=== PATIENT | female | born 1990 | race Caucasian/White ===

== ENCOUNTER → 2018-11-14 14:38 | Outpatient (CLI) | payer MEDICAID, SELFPAY ==
[2017-08-25 16:06] VITALS: BMI 28.2
[2018-11-14 18:07] LABS: Chlamydia Trachomatis by PCR Negative (Negative); Neisserai gonorrhoeae by PCR Negative (Negative); Probe Check PASS; Sample Adequacy Control PASS; Specimen Processing Control PASS
--- OUTSIDE RECORDS SUMMARY | 2019-01-19 05:02 | XMS RPT_ITS ---
:1990 Author Organization OHIP Care Team Providers Name Role Phone Consuelo Jacome Attending Unavailable PROBLEMS PROBLEMS DATE TYPE CONDITION / CODE ATTENDING STATUS SOURCE 11/14/2018 Unknown Z11.3 - Encounter Pradeep Jacome for screening for [facility] infections with a Hospital predominantly Repository sexual mode of transmission / Z11.3(ICD-10) 11/14/2018 Unknown Z32.01 - Encounter Pradeep Jacome for test, [facility] result positive / Hospital Z32.01(ICD-10) Repository PROCEDURES PROCEDURES No Procedure Records FoundRESULTS RESULTS CT/NG [facility] BY PCR Collected: 11/14/2018 Status: F Source: [place]UCKEE 9:00 AM [facility] REPOSITORY TYPE CODE TESTS RESULT OUT OF RANGE REFERENCE UNITS LAB L8200.2100 Negative Normal Chlam Negative Trac PCR LAB L8200.2200 Negative Normal NG by Negative PCR Performed By: #### L8200.2000 #### Laboratory [address] [place], [address] ALLERGIES ALLERGIES DATE TYPE / CODE NAME / CODE REACTION SEVERITY SOURCE 08/25/2017 Drug No Known Unknown [facility] Allergy/4160 Allergies/F00 Hospital 37767(SNOMED [id number](RXNOR Repository CT) M) ENCOUNTERS ENCOUNTERS ADMIT/DISCHARGE ACCOUNT ADMITTING ENCOUNTER LOCATION SOURCE NUMBER CLASS 11/14/2018 [id number] Ambulatory [address] ing:LABSPEC Repository PAYERS PAYERS ENCOUNTER GUARANTOR PAYER SUBSCRIBER SOURCE 11/14/2018 SANJAY Griffith Primary Insurance:[facility] SANJAY FLORESMAN10439 [facility] SANDRAMANDOB: [facility] [address] Number: [id number], [place] [id number] Repository [address]Hrc: (330) Date:[id number] [phone] () [address] [place] [address] [id number]: 11/14/2018 Secondary NOT GIVENUNK Bobby Insurance:[facility]LF [facility]: Effective Repository Date:2018-11-14
== END ==
PROVIDERS: Visit Provider Obstetrics & Gynecology
DX: Z11.3 Encounter for screening for infections with a predominantly sexual mode of transmission (principal); Z32.01 Encounter for pregnancy test, result positive
CPT/HCPCS: 87491; 87591

== ENCOUNTER → 2018-12-02 15:30 | Outpatient (CLI) | payer MEDICAID, SELFPAY ==
[2017-08-25 16:06] VITALS: BMI 28.2
[2018-12-02 16:08] LABS: Color, Urine Yellow (Yellow); Glucose, Dipstick Normal (Normal); Ketone-Dipstick Negative (Negative); Leukocyte Esterase-Dipstick Negative /ul (Negative); Nitrite-Dipstick Negative (Negative); Occult Blood-Urine Negative /ul (Negative); Protein-Dipstick Negative (Negative); Specific Gravity, Urine 1.005 (1.002-1.030); Urine Bilirubin Dipstick Negative (Negative); Urine Clarity Clear (Clear); Urine Urobilinogen Normal (Normal)
[2018-12-02 16:15] LABS: COTININE Drug Screen Positive (<200 ng/mL)
[2018-12-02 16:28] LABS: Amphetamine Urine VISTA NEGATIVE (<1000 ng/mL); Barbiturate Urine VISTA NEGATIVE (< 200 ng/mL); Benzodiazepine Urine VISTA NEGATIVE (< 200 ng/mL); Cocaine Urine VISTA NEGATIVE (< 300 ng/mL); Ecstacy Urine VISTA NEGATIVE (< 500 ng/mL); Methadone Urine VISTA NEGATIVE (< 300 ng/mL); PCP Urine VISTA NEGATIVE (< 25 ng/mL); THC Urine VISTA NEGATIVE (< 50 ng/mL); Vista UDS pH Range 6
[2018-12-02 17:34] LABS: Absolute Lymphocyte Count 2.16 X10^3/ul (0.83-4.51); Absolute Neutrophil Count 3.5 X10^3/uL (2.0-7.7); Basophil# 0.02 X10^3/uL; Basophil% 0.3 % (0-1); Eosinophil# 0.13 X10^3/uL; Hematocrit 40.5 % (37-47); Hemoglobin 13.5 g/dl (12.0-15.0); Lymphocyte # 2.16 X10^3/ul (4.0); Lymphocyte % 33.9 % (19-41); Mean Corp Hgb Conc 33.3 g/gl (32-36); Mean Corpuscular Hgb 30.3 pg (27.0-32.0); Mean Platelet Vol. 10.1 fl (6.2-12.0); Monocyte# 0.52 X10^3/uL; Monocyte% 8.2 % (0-10); Neutrophil # 3.53 X10^3/uL (2.7-7.7); Neutrophil % 55.4 % (47-70); Platelet Count 268 K/mm3 (150-450); RBC Distribution Width CV 11.9 % (11.6-14.6); RBC Distribution Width SD 39.1 fl (35.1-43.9); Red Blood Count 4.45 M/mm3 (4.2-5.4); White Blood Count 6.4 K/mm3 (4.4-11.0)
[2018-12-02 17:36] LABS: POSITIVE COUNT NO; POSITIVE DIFFERENTIAL NO; POSITIVE MORPHOLOGY NO
[2018-12-02 17:44] LABS: Thyroid Stim Hormone (TSH) 0.53 uIU/mL (0.358-3.74)
[2018-12-02 18:29] LABS: HIV - WCH Non-Reactive (Nonreactive); Rubella IgG 26.8 IU/mL; Vitamin D,25 Hydroxy 19.9 ng/mL (29.95-100.01)
[2018-12-04 07:53] LABS: HEPATITIS B SURFACE AG Negative (Negative); Hep C Antibodies 0.2 s/co ratio (0.0-0.9)
[2018-12-04 23:34] LABS: Prenatal RPR NONREACTIVE (NONREACTIVE)
== END ==
PROVIDERS: Visit Provider Obstetrics & Gynecology
DX: Z34.81 Encounter for supervision of other normal pregnancy, first trimester (principal)
CPT/HCPCS: 36415; 80307; 81002; 82306; 84443; 85025; 86703; 86762; 86803; 87340

== ENCOUNTER → 2018-12-12 10:28 | Outpatient (CLI) | payer MEDICAID, SELFPAY | LOC: WOBLAB 10:28 → LABSPEC 10:31 | PROVIDERS: Visit Provider Obstetrics & Gynecology | DX: O23.41 Unspecified infection of urinary tract in pregnancy, first trimester (principal); Z3A.00 Weeks of gestation of pregnancy not specified | CPT/HCPCS: 87086 ==

== ENCOUNTER → 2019-04-15 | Outpatient (CLI) | payer MEDICAID, SELFPAY ==
[2017-08-25 16:06] VITALS: BMI 28.2
[2019-04-15 17:41] LABS: Glucose Challenge Gest 1H 50g 109 mg/dL (70-140); Hematocrit 37.2 % (37-47); Hemoglobin 12.7 g/dl (12.0-15.0); Mean Corp Hgb Conc 34.1 g/gl (32-36); Mean Corpuscular Hgb 30.1 pg (27.0-32.0); Mean Corpuscular Volume 88.2 fL (81-99); Mean Platelet Vol. 9.6 fl (6.2-12.0); Platelet Count 249 K/mm3 (150-450); RBC Distribution Width CV 13.1 % (11.6-14.6); RBC Distribution Width SD 40.9 fl (35.1-43.9); Red Blood Count 4.22 M/mm3 (4.2-5.4); White Blood Count 7.6 K/mm3 (4.4-11.0)
[2019-04-15 17:50] LABS: Scan Indicated on CBC? Y/N NO
== END | disposition home or self-care (01) ==
LOC: WOBLAB 15:55
PROVIDERS: Visit Provider Obstetrics & Gynecology
DX: Z34.83 Encounter for supervision of other normal pregnancy, third trimester (principal)
CPT/HCPCS: 36415; 82950; 85027

== ENCOUNTER → 2019-06-11 16:24 | Outpatient (CLI) | payer MEDICAID, SELFPAY ==
[2017-08-25 16:06] VITALS: BMI 28.2
[2019-06-11 17:45] LABS: AST(SGOT) 18 U/L (15-37); Alanine Aminotransfer ALT/SGPT 22 U/L (13-56); Albumin, Serum 2.8 g/dL (3.2-5.0); Alkaline Phosphatase 153 U/L (45-117); Bilirubin, Direct 0.06 mg/dL (0.00-0.30); Globulin 4.6 g/dL (2.2-4.2); Protein, Total 7.4 g/dL (6.4-8.2)
== END ==
PROVIDERS: Visit Provider Obstetrics & Gynecology
DX: Z36.85 Encounter for antenatal screening for Streptococcus B (principal)
CPT/HCPCS: 36415; 80076; 87081

== ENCOUNTER 2019-06-18 16:07 | Outpatient (CLI) | payer MEDICAID, SELFPAY ==
[2017-08-25 16:06] VITALS: BMI 28.2
[2019-06-18 16:25] VITALS: BMI 33.3
--- NOTE | 2019-06-20 11:35 | OB.TRI.NOTE ---
History of Present Illness Date of Service: 06/18/19 Was patient seen by the physician?: No Reason For Visit: NST Date of Service: 06/18/19 Final ALEXANDR: 07/04/19 Gestational age: 37 Weeks and 5 Days History of Present Illness: 37+ week intrauterine presents for scheduled nonstress test for pruritus. care otherwise uneventful Allergies No Known Allergies Allergy (Verified 06/18/19 16:27) NST - FHR Rate Baby A NST Reactive:: Yes FHR Category:: Category I Impression/Plan 37+ week intrauterine with pruritus. Reactive nonstress test. Continued weekly nonstress tests are planned per Dr. Johnathan Buckner. Continue routine office follow-up.
== END 2019-06-18 16:40 | disposition home or self-care (01) ==
LOC: WPOUT 16:07 → WP 16:08
PROVIDERS: Referring Provider Obstetrics & Gynecology; Visit Provider Obstetrics & Gynecology
DX: O99.713 Diseases of the skin and subcutaneous tissue complicating pregnancy, third trimester (principal); L29.9 Pruritus, unspecified; Z3A.37 37 weeks gestation of pregnancy
CPT/HCPCS: 59025

== ENCOUNTER → 2019-06-24 17:00 | Outpatient (CLI) | payer MEDICAID, SELFPAY ==
[2019-06-18 16:25] VITALS: BMI 33.3
[2019-06-24 17:41] LABS: Hematocrit 37.8 % (37-47); Hemoglobin 12.6 g/dL (12.0-15.0); Mean Corp Hgb Conc 33.3 g/dL (32-36); Mean Platelet Vol. 9.9 fl (6.2-12.0); Platelet Count 211 K/mm3 (150-450); RBC Distribution Width SD 42.6 fl (35.1-43.9); White Blood Count 7.8 K/mm3 (4.4-11.0)
[2019-06-24 18:04] LABS: ALB/GLOB Ratio 0.6 RATIO (0.9-2.4); AST(SGOT) 18 U/L (15-37); Alanine Aminotransfer ALT/SGPT 23 U/L (13-56); Albumin, Serum 2.5 g/dL (3.2-5.0); Alkaline Phosphatase 159 U/L (45-117); Anion Gap 11 (5-15); BUN 11 mg/dL (7-18); BUN/Creat Ratio 20.8 RATIO (10-20); Calcium,Total 8.5 mg/dL (8.5-10.1); Chloride 110 mmol/L (98-107); Creatinine, Serum 0.53 mg/dL (0.55-1.02); EST Glomerular Filtration Rate 146 mL/min (>60); Est Glom Filt Rate - Afr Amer 177 mL/min (>60); Globulin 4.4 g/dL (2.2-4.2); Glucose 84 mg/dL (74-106); Potassium 3.8 mmol/L (3.5-5.1); Protein, Total 6.9 g/dL (6.4-8.2); Sodium Level 142 mmol/L (136-145); Uric Acid 3.9 mg/dL (2.6-6.0)
[2019-06-24 19:30] LABS: Protein, Urine (Random) 13.9 mg/dL (<11.9)
== END ==
PROVIDERS: Visit Provider Obstetrics & Gynecology
DX: O13.3 Gestational [pregnancy-induced] hypertension without significant proteinuria, third trimester (principal)
CPT/HCPCS: 36415; 80053; 82570; 84156; 84550; 85027

== ENCOUNTER 2019-07-06 09:30 | Inpatient (IN) | payer MEDICAID, SELFPAY ==
[2019-07-06] VITALS (17 sets, daily range): BP systolic 110–134; BP diastolic 47–90; PULSE 70–98; RESP 12–18; TEMP 35.7–36.6; O2SAT 94–100; BMI 33.8
[2019-07-06 10:08] LABS: Absolute Lymphocyte Count 1.84 X10^3/uL (0.83-4.51); Absolute Neutrophil Count 5.3 X10^3/uL (2.0-7.7); Basophil# 0.01 X10^3/uL; Basophil% 0.1 % (0-1); Eosinophil# 0.07 X10^3/uL; Eosinophils% 0.9 % (0-5); Hematocrit 40.2 % (37-47); Hemoglobin 13.6 g/dL (12.0-15.0); Lymphocyte # 1.84 X10^3/ul (4.0); Lymphocyte % 23.3 % (19-41); Mean Corp Hgb Conc 33.8 g/dL (32-36); Mean Corpuscular Hgb 30.2 pg (27.0-32.0); Mean Corpuscular Volume 89.1 fL (81-99); Mean Platelet Vol. 9.7 fl (6.2-12.0); Monocyte# 0.62 X10^3/uL; Monocyte% 7.8 % (0-10); NRBC Flagged by Analyzer 0 % (0-5); Neutrophil # 5.32 X10^3/uL (2.7-7.7); Neutrophil % 67.4 % (47-70); Platelet Count 197 K/mm3 (150-450); RBC Distribution Width CV 12.7 % (11.6-14.6); RBC Distribution Width SD 41.4 fl (35.1-43.9); Red Blood Count 4.51 M/mm3 (4.2-5.4); White Blood Count 7.9 K/mm3 (4.4-11.0)
[2019-07-06] MEDS: Lactated Ringers 1,000 ML 999 ML IV (10:22)
[2019-07-06] MEDS: Lactated Ringers 1,000 ML 150 ML IV (10:57)
[2019-07-06] MEDS: Sodium Citrate/Citric Acid 30 ML UDC PO (11:48)
[2019-07-06] MEDS: Cefazolin 2 GM in 0.9% Normal Saline 100 ML IV (11:58)
--- NOTE | 2019-07-06 12:30 | PCM.HP.OB ---
- Problem List (1) 40 weeks gestation of Status: Acute History Date of Admission: 01/24/15 Final ALEXANDR: 07/04/19 Gestational age: 40 Weeks and 2 Days History of this : This is a 28 year-old, G [2], P [1002], at 40 2/7 weeks gestational age presenting for scheduled repeat section. Surgical History: Surgical History (Last Updated 07/06/19 @ 12:31 by Consuelo Jacome MD) Previous section Z98.891 2014 Allergies No Known Allergies Allergy (Verified 06/18/19 16:27) Home Medications: Home Medications Vits [Prenatabs FA ] 1 tab PO DAILY 06/18/19 Smoking Status: Light Smoker (<10/day) Alcohol: None Substance Use Type: Alcohol Number of Fetus(es): 1 History Past Pregnancies: Past Pregnancies Delivery Date Name GA/Weeks Outcome Route Weight Gender Labor Length Anesthesia Delivery Location Provider FOB 12/2014 Lev Victoria 37 Living C/S 4lb8oz, 4lb 5oz M/M Epidural [facility] Labs: Mom's Problem List Problem Status Onset Code 40 weeks gestation of Acute Z3A.40 Mom's Labs & Results 07/06/19 07/06/19 09:55 09:55 WBC 7.9 RBC 4.51 Hgb 13.6 Hct 40.2 MCV 89.1 MCH 30.2 MCHC 33.8 RDW Std Deviation 41.4 RDW Coeff of Mario Alberto 12.7 Plt Count 197 MPV 9.7 Immature Gran % (Auto) 0.500 Neut % (Auto) 67.4 Lymph % (Auto) 23.3 [place] % (Auto) 7.8 Eos % (Auto) 0.9 Baso % (Auto) 0.1 Absolute Neuts (auto) 5.3 Absolute Lymphs (auto) 1.84 Nucleated RBC % 0 Blood Type O POSITIVE Antibody Screen NEGATIVE Course Did the patient receive Yes care? Labs Blood Type: O RH: POSITIVE RPR/VDRL/Syphilis Nonreactive Rubella status Immune HbSAg Negative Date Done: 12/02/18 Chlamydia Negative Gonorrhea Negative HIV/AIDS Non-Reactive Group B Strep: Negative Current Obstetrical History Gestational Diabetes No Incompetent Cervix No Infertility No IUGR No Macrosomia No Hypertension/Pre-eclampsia No Placenta Previa/Abruption No PTL/PROM No Uterine anomaly No Oligohydramnios No Polyhydramnios No Multiple gestation No Past Medical History Asthma No Diabetes No Hypertension No Heart disease No Mitral valve prolapse No Neurologic/Seizure disorder/ No Migraines Kidney disease No Liver disease No Varicosities No Clotting disorders/Hx of DVT No Thyroid Dysfunction No Other medical diseases No Psychiatric disorders No Major trauma No Abnormal PAP smear No Sleep apnea No Mammogram in the last 2 years No Social History Marital Status: SINGLE Alleged father karthik Hx Smoking Yes Smoking Status Light Smoker (<10/day) How long have you used na substances (years)? Expected Infant Delivery Method: Scheduled Section Number of Visits: 13 Review of Systems Constitutional: Denies: Anorexia HEENT: Denies: Visual Changes Cardiovascular: Denies: Chest Pain Respiratory: Denies: Shortness of Breath Gastrointestinal: Denies: Abdominal Pain, Nausea, Vomiting Neurological: Denies: Headaches Physical Exam Vitals: avss General: Alert, Oriented x3, Cooperative Cardiovascular: Regular Rhythm, Normal S1, Normal S2 Lungs: Clear to auscultation, Normal air movement Abdomen: Soft, Non Tender, Non-Distended, Gravid Neurological: Neuro grossly intact TEMPERATURE REGULATOR: Normal external genitalia Estimated gestational size: Appropriate for gestational size Presentation: Cephalic Cervix Dilation (cm): 0 Assessment/Plan All Active Problems 40 weeks gestation of (Acute) This is a 28 year-old, G [2], P [2], at 40 2/7 weeks gestational age. Proceed as planned with repeat section. Consents signed.
--- NOTE | 2019-07-06 13:41 | PCM.OPRPT ---
Problem List (1) 40 weeks gestation of Status: Acute Report of Operation Surgery/Procedure Performed:: 1. Repeat low transverse section. 2. Lysis of adhesions. 3. Nuknit placement Delivery Classification: Scheduled Final ALEXANDR: 07/04/19 Final ALEXANDR Source: US <20 weeks Gestational age: 40 Weeks and 4 Days insurance claims specialist: Sonja Menezes Type of Anesthesia:: Spinal Date of Procedure: 07/06/19 Pre-Operative Diagnosis: 40 2/7wga, prior section Post-Operative Diagnosis: 40 2/7wga, Prior section Indications: 28yo at 40 2/7wga with hx prior section. Expectant management was planned for TOLAC however no spontaneous labor had ensued and patient declined further expectant management. Procedural r/b/i/a reviewed. Indications for : Repeat Elective Description of Procedure: The patient was taken to the operating room and spinal analgesia was administered. She is placed in a dorsal supine position with left lateral tilt. The perineum and abdomen were prepped and draped in sterile fashion. the spinal was found to be adequate. A Pfannenstiel incision was made using a scalpel and brought down to incise the subcutaneous tissue and rectus fascia at the midline. Subcutaneous tissue was bluntly dissected off the fascia laterally. The fascial incision was dissected laterally and cephalad using curved Richardson scissors. The superior leaflet of the rectus fascia was grasped using Lynn clamps and bluntly dissected and sharply dissected from the underlying rectus muscle. In a similar fashion the inferior rectus fascia was dissected from the underlying muscle. The rectus muscles were bluntly at the midline with spontaneous entry into the peritoneal cavity. There appeared to have been a dense adhesion of the anterior uterus at the midline to the rectus abdominis muscle as there was longitudinal denudement of uterine serosa and the initial layer of the myometrium at the midline - exposing the transverse uterine muscle. The peritoneal incision was thus extended inferior to this area allowing access to the lower uterine segment. The vesicouterine peritoneal fold identified. The fold was incised and a bladder flap created. Bladder blade was then repositioned to the abdomen. A low transverse hysterotomy was made using the [Metzenbaum scissors] to level of the membranes. The hysterotomy was extended bluntly cephalad and caudad. The membranes were then ruptured revealing clear fluid. The head was elevated and brought to the level of the hysterotomy and the delivered using the Kiwi with suction applied to 500mmHg to the flexion point due to initial difficulty. A female was revealed. The cord was doubly clamped and cut after 30 seconds. The was passed to awaiting [nursery personnel]. The placenta was [expressed] from the uterus and appeared intact on inspection. The uterus was cleared of debris. The hysterotomy was then repaired using 0 Vicryl running lock suture. A second imbricating layer was also placed for additional hemostasis. The abdominal wall adhesion was further inspected and it appeared that the right rectus muscle- anterior uterine adhesion created a thick wall with no significant access to the right adnexa. Sharp dissection of the adhesion was performed to mobilize sufficient myometrium for reapproximation of the midline uterine defect; however, due to the density of the defect bleeding was encountered which improved with compression and reapproximation of the anterior uterine wall. The midline uterine defect was reapproximated using 2-0 Vicryl at the myometrium and again at the serosa. Hemostasis attained. Nuknit was placed to prevent worsening adhesion. The bladder blade was removed. The anterior cul-de-sac was cleared of debris. The peritoneum and rectus muscles were reapproximated using 2-0 Vicryl running suture. The rectus fascia was closed using 0 STratafix running suture. The subcutaneous tissue small capillary bleeding controlled using the Bovie device. The subcutaneous tissue was reapproximated using 2-0 Vicryl. The skin was closed using 4-0 Monocryl subcuticularly by the OIL FIELD TECHNICIAN under my supervision. A Mepilex occlusive dressing was placed over the incision. The fundus was firm. The patient was then transferred to the recovery room without complication. Sponge, instrument, and needle counts were correct ?2. Consider future delivery at 37-38 weeks gestation gestation given the midline myometrial defect in classical distribution. Amniotic Membrane Rupture Type: Artificial Amniotic Fluid Description: Clear Placenta Disposition: [facility] Drain: Pimentel to straight drain Fluids Replaced: 1500 ml Cord Entanglement: None Nuchal Cord Compression: Without compression Cord Vessel Description: 3 Vessels Esitmated Blood Loss (ml): 900 Infant Gender: Female (1 minute): 9 (5 minute): 9 Delayed cord clamping: Yes Antibiotic Given: Ancef 2 grams IV x1 Pt instructed on risks of surgery: Bleeding, Anesthesia Risks, Infection, Failure Rate of 1 to 2%, Injury to surrounding structure(s) including bowel and bladder Complications: None - Admit VTE Documentation VTE Present on Admission: No VTE Mechan Device Prophylaxis: SCD's VTE Pharm Prophylaxis ordered?: No
[2019-07-06] MEDS: Oxytocin 30 units/NS 500 ml 30 UNITS/500 ML IV.SOLN 167 UNITS IV (14:15)
[2019-07-06] MEDS: Lactated Ringers 1,000 ML 100 ML IV (17:44)
[2019-07-06] MEDS: Ondansetron 4 MG/2 ML Vial IV (19:00)
[2019-07-06] MEDS: 0.9% Saline Lock 10 ML Syringe IV (20:01)
[2019-07-06] MEDS: Ketorolac 30 MG/ML Syringe IV (20:01)
[2019-07-06] MEDS: Cefazolin 1 GM/50 ML BAG IV (20:02)
[2019-07-07] VITALS (9 sets, daily range): BP systolic 103–132; BP diastolic 55–83; PULSE 65–92; RESP 16–20; TEMP 36.4–37.1; O2SAT 96–100
[2019-07-07] MEDS: Ketorolac 30 MG/ML Syringe IV ×4 (02:00→19:44)
[2019-07-07] MEDS: 0.9% Saline Lock 10 ML Syringe IV ×4 (02:01→19:45)
[2019-07-07] MEDS: Lactated Ringers 1,000 ML 100 ML IV (03:44)
[2019-07-07] MEDS: Cefazolin 1 GM/50 ML BAG IV (03:44)
[2019-07-07 06:33] LABS: Hematocrit 32.8 % (37-47); Hemoglobin 11.1 g/dL (12.0-15.0); Mean Corp Hgb Conc 33.8 g/dL (32-36); Mean Corpuscular Hgb 30.7 pg (27.0-32.0); Mean Corpuscular Volume 90.6 fL (81-99); Mean Platelet Vol. 9.6 fl (6.2-12.0); Platelet Count 166 K/mm3 (150-450); RBC Distribution Width CV 12.7 % (11.6-14.6); RBC Distribution Width SD 41.9 fl (35.1-43.9); Red Blood Count 3.62 M/mm3 (4.2-5.4)
--- NOTE | 2019-07-07 09:05 | PN.OBGYN_ITS ---
Patient Problems: Active and Suspected Problems 40 weeks gestation of (Acute) Subjective: No issues overnight. No flatus yet. Emesis yesterday, but tolerates PO yet. OOB without difficulty. Infant nursing well. Objective: AVSS - Physical Exam General: Alert, Oriented x3, Cooperative HEENT: Atraumatic, PERRLA, EOMI, Normocephalic Lungs: Clear to auscultation, Normal air movement Cardiovascular: Regular rate, Regular Rhythm, Normal S1, Normal S2, No murmurs Abdomen: Bowel Sounds Present, Soft, Non Tender, - - Fundus firm and nontender, lochia scant Extremities: - - trace LE edema Skin: No rashes Neurological: Neuro grossly intact Psych/Mental Status: Normal Affect, Appropriate, Alert and oriented to time, place, person, mood and affect Vital Signs Temp Pulse Resp BP Pulse Ox 97.2 F L 68 18 103/63 99 07/06/19 23:00 07/07/19 06:00 07/07/19 06:00 07/07/19 03:50 07/07/19 06:00 Oxygen Delivery Method Room Air Weight: 92.3 kg Body Mass Index (BMI) 33.8 Intake and Output for Last 24 Hours 07/05/19 07/06/19 07/07/19 23:59 23:59 23:59 Intake Total 3887.5 / 3887.5 1650 / 1650 Output Total 710 / 710 925 / 925 Balance 3177.5 / 3177.5 725 / 725 Laboratory Tests Past 24 Hrs 07/06/19 07/06/19 07/07/19 09:55 09:55 06:12 WBC 7.9 8.0 RBC 4.51 3.62 L Hgb 13.6 11.1 L Hct 40.2 32.8 L MCV 89.1 90.6 MCH 30.2 30.7 MCHC 33.8 33.8 RDW Std Deviation 41.4 41.9 RDW Coeff of Mario Alberto 12.7 12.7 Plt Count 197 166 MPV 9.7 9.6 Immature Gran % (Auto) 0.500 Neut % (Auto) 67.4 Lymph % (Auto) 23.3 [place] % (Auto) 7.8 Eos % (Auto) 0.9 Baso % (Auto) 0.1 Absolute Neuts (auto) 5.3 Absolute Lymphs (auto) 1.84 Nucleated RBC % 0 Blood Type O POSITIVE Antibody Screen NEGATIVE Medical Necessity - Tobacco Use Smoking Status: Light Smoker (<10/day) Assessment/Plan All Active Problems 40 weeks gestation of (Acute) This is a 28 year-old, G [2], P [2003] s/p RLTCS doing well. - -Rh positive -Routine postop care
[2019-07-07] MEDS: Prenatal Vits Tablet 1 TABLET PO (12:33)
[2019-07-07] MEDS: oxyCODONE 5 MG Tablet PO ×2 (12:33→20:19)
[2019-07-08] MEDS: oxyCODONE 5 MG Tablet PO ×2 (00:21→10:23)
[2019-07-08 01:55] VITALS: BP 136/71; PULSE 79; RESP 16; TEMP 36.7; O2SAT 98
[2019-07-08] MEDS: 0.9% Saline Lock 10 ML Syringe IV ×2 (01:57→07:44)
[2019-07-08] MEDS: Ketorolac 30 MG/ML Syringe IV ×2 (01:57→07:44)
--- NOTE | 2019-07-08 06:37 | PCM.PN.OB ---
Patient Problems: Active and Suspected Problems 40 weeks gestation of (Acute) Subjective: No complaints. Pain controlled, passing flatus. Tolerates PO and voids without difficulty. Objective: AVSS - Physical Exam General: Alert, Oriented x3, Cooperative, No apparent distress HEENT: Atraumatic, Normocephalic Lungs: Clear to auscultation, Normal air movement Cardiovascular: Regular rate, Regular Rhythm, Normal S1, Normal S2 Abdomen: Bowel Sounds Present, Soft, Non Tender, Non-Distended, - - fundus firm and nontender, incisional dressing c/d/i Extremities: No edema, No Calf Tenderness Neurological: Neuro grossly intact Psych/Mental Status: Normal Affect, Appropriate, Alert and oriented to time, place, person, mood and affect Vital Signs Temp Pulse Resp BP Pulse Ox 98.0 F 79 16 136/71 H 98 07/08/19 01:55 07/08/19 01:55 07/08/19 01:55 07/08/19 01:55 07/08/19 01:55 Oxygen Delivery Method Room Air Weight: 92.3 kg Body Mass Index (BMI) 33.8 Intake and Output for Last 24 Hours 07/06/19 07/07/19 07/08/19 23:59 23:59 23:59 Intake Total 3887.5 / 3887.5 3643.33 / 3643.33 Output Total 710 / 710 4225 / 4225 Balance 3177.5 / 3177.5 -581.67 / -581.67 Medical Necessity - Tobacco Use Smoking Status: Light Smoker (<10/day) Assessment/Plan All Active Problems 40 weeks gestation of (Acute) This is a 28 year-old, G [2], P [2003] POD#2 s/p RLTCS doing well. - -Rh positive -Routine postop care -Plan for d/c home later today
--- NOTE | 2019-07-08 06:40 | DCINST_ITS ---
Discharge Diet: No Restrictions Discharge Activity: Return to Normal Activity, May not drive while taking narcotic pain medications., May Shower, - - No tub bath May resume sexual activity in: 4-6 weeks Lifting Restrictions: 10 lb Suture Line Care: Avoid Pulling/Pushing Remove Dressing in (days):: - Saturday Cleanse incision/area with: Soap & Water Additional Instructions: If you experience any of the following, contact your healthcare provider. * Bleeding that soaks a pad every hour for 2 hours * Fever 100.4 or higher * Unrelieved incision or abdominal pain * Swelling, redness, discharge or bleeding from your incision or episiotomy site * Your incision begins to separate * Problems urinating (including inability to urinate or burning while urinating). * Visual changes * Severe headache * Flu-like symptoms * Pain or redness in one of both of your breasts * Pain, warmth, tenderness or swelling in your legs, especially the calf area * Frequent nausea and vomiting * Symptoms of depression or anxiety If you experience any of the following, call 911 or go to the nearest Emergency Room. * Chest pain * Problems breathing * Seizure activity * Partial or complete paralysis of a body part, slurred speech, weakness or drooping of the face, or a sudden inability to walk or hold your balance Allergies/Adverse Reactions: Allergies No Known Allergies Allergy (Verified 06/18/19 16:27) Medications to take at Discharge Vits [Prenatabs FA ] 1 tab PO DAILY 06/18/19 Ibuprofen [Motrin] 600 mg PO Q8H PRN PRN #30 tab 07/07/19 Oxycodone [Oxyir] 1 - 2 tab PO Q6H PRN PRN 7 Days #28 tab 07/07/19 Senna/Docusate Sodium [Senokot-S] 1 - 2 tab PO DAILY PRN #60 tab 07/07/19 The following prescriptions were given: Ibuprofen [Motrin] 600 mg PO Q8H PRN PRN #30 tab PRN Reason: Mild Pain (1-01/04) [facility] Oxycodone [Oxyir] 1 - 2 tab PO Q6H PRN PRN 7 Days #28 tab PRN Reason: Mod-Severe Pain (-08/06) Transmission Status: Received by [facility]24 Senna/Docusate Sodium [Senokot-S] 1 - 2 tab PO DAILY PRN #60 tab PRN Reason: Constipation Transmission Status: Received by [facility]27 Follow-Up: Call to make an appointment with your doctor for an incision check in 1-2 weeks. You will also need a 6 week post- follow up appointment. Test results from this visit will be discussed in further detail at your follow- up appointment, if applicable. Please Follow Up With: Consuelo Jacome MD When: 1-2 weeks Primary Care Physician: Care Physician,No Primary [Primary Care Provider] -
[2019-07-08 07:48] VITALS: BP 125/78; PULSE 77; RESP 16; TEMP 36.2; O2SAT 96
--- NOTE | 2019-07-12 12:52 | PCM.DC.SUM ---
Discharge Date and Diagnosis Date of Admission: 07/06/19 Date of Discharge: 07/08/19 Hospital Course and Treatment Operations: - - Repeat Low transverse section Summary of Care Provided: The patient is a 28 year old F 2 para 1002 admitted at 40 2/7 weeks gestational age for scheduled repeat section. Her procedure was uncomplicated. She was , ambulating without difficulty and pain controlled. She was discharged to home on postoperative day #2. - Physical Exam Vital Signs Temp Pulse Resp BP Pulse Ox 97.2 F L 77 16 125/78 H 96 07/08/19 07:48 07/08/19 07:48 07/08/19 07:48 07/08/19 07:48 07/08/19 07:48 Oxygen Delivery Method Room Air Weight: 92.3 kg Body Mass Index (BMI) 33.8 Discharge Diet: No Restrictions Discharge Activity: Return to Normal Activity, May not drive while taking narcotic pain medications., May Shower, - - No tub bath May resume sexual activity in: 4-6 weeks Suture Line Care: Avoid Pulling/Pushing Remove Dressing in (days):: - Saturday Cleanse incision/area with: Soap & Water Home Medications: Medications to take at Discharge Vits [Prenatabs FA ] 1 tab PO DAILY 06/18/19 Ibuprofen [Motrin] 600 mg PO Q8H PRN PRN #30 tab 07/07/19 Oxycodone [Oxyir] 1 - 2 tab PO Q6H PRN PRN 7 Days #28 tab 07/07/19 Senna/Docusate Sodium [Senokot-S] 1 - 2 tab PO DAILY PRN #60 tab 07/07/19 Following Prescrptions Were Given to Patient: Ibuprofen [Motrin] 600 mg PO Q8H PRN PRN #30 tab PRN Reason: Mild Pain (1-01/04) Transmission Status: Received by [facility]24 Oxycodone [Oxyir] 1 - 2 tab PO Q6H PRN PRN 7 Days #28 tab PRN Reason: Mod-Severe Pain (-08/06) Transmission Status: Received by [facility]24 Senna/Docusate Sodium [Senokot-S] 1 - 2 tab PO DAILY PRN #60 tab PRN Reason: Constipation Transmission Status: Received by [facility] [id number] Primary Care Physician: Care Physician,No Primary [Primary Care Provider] - Please follow up with your Primary Care Physician in: 1-2 weeks for incision check and at 6 weeks Please Follow Up With: Consuelo Jacome MD When: 1-2 weeks Medical Necessity - Tobacco Use Smoking Status: Light Smoker (<10/day) Meaningful Use Info Meaningful Use Diagnoses (Choose all that apply): None applicable
== END 2019-07-08 11:00 | disposition home or self-care (01) | DRG 540 ==
PROVIDERS: Admitting Provider Obstetrics & Gynecology; Referring Provider Obstetrics & Gynecology; Visit Provider Obstetrics & Gynecology
PROC: 10D00Z1 Extraction of Products of Conception, Low, Open Approach (ICD-10-PCS; CPT 59514; principal; 2019-07-06 11:45)
DX: O65.5 Obstructed labor due to abnormality of maternal pelvic organs (principal); O34.211 Maternal care for low transverse scar from previous cesarean delivery; F17.200 Nicotine dependence, unspecified, uncomplicated; O99.334 Smoking (tobacco) complicating childbirth; Z37.0 Single live birth; Z3A.40 40 weeks gestation of pregnancy
CPT/HCPCS: 85025; 85027; 86850; 86900; 86901; 99218; J7120; A4216; G0378; J2405

== ENCOUNTER → 2019-11-13 16:31 | Outpatient (CLI) | payer MEDICAID, SELFPAY ==
[2019-07-06 09:52] VITALS: BMI 33.8
[2019-11-17 14:53] LABS: HPV Reflexed? NOT INDICATED
== END ==
PROVIDERS: Visit Provider Obstetrics & Gynecology
DX: Z12.4 Encounter for screening for malignant neoplasm of cervix (principal)
CPT/HCPCS: 88175; G0145

== ENCOUNTER 2022-05-03 09:25 | Day surgery (SDC) | payer MEDICAID, SELFPAY ==
[2022-05-03] VITALS (7 sets, daily range): BP systolic 108–123; BP diastolic 70–80; PULSE 55–73; RESP 14–16; TEMP 36.6–37.6; O2SAT 99–100; BMI 23.4
--- NOTE | 2022-05-03 | FALS_PTH ---
PATIENT: SANJAY TEJADA [facility]: [facility] U#:[id number] AGE/SX: 31/F ROOM: RE05/03/[address]: Dr. Consuelo Buckner MD : 1990 BED: DIS: 05/03/2022 SPEC #: [id number] RECD: 05/03/22 13:07 STATUS: ASHLEY RERamses #: [id number] RY: 05/03/22 00:[address]: Consuelo Walters DEPT: SURGICAL PATHOLOGY RECD BY: [place] ENTERED: 05/03/22 13:08 SP TYPE: FALL TUBES OTHR DR: No Primary Care Phys Tissues: Fallopian tube Procedures: Surgery Specimen Level II HEADER OPERATION: Laparoscopic salpingectomy PRE-OP DIAGNOSIS: Sterilization TISSUE SUBMITTED: Bilateral fallopian tubes MICROSCOPIC DIAGNOSIS Bilateral fallopian tubes, salpingectomy: Bilateral fallopian tubes, no pathologic diagnosis. CHARMAINE:matty 05/04/2022 MICROSCOPIC DESCRIPTION Slides are reviewed. GROSS DESCRIPTION Received in fixative is one container labeled with the patient's name and designated bilateral fallopian tubes. The specimen consists of bilateral fallopian tubes including fimbrial ends measuring 9 cm in length and up to 0.8 cm in diameter and 6.5 cm in length and 0.7 cm in diameter. The fallopian tubes are not identified as right or left. Sections reveal unremarkable cut surfaces. Ice House Supervisor sections are submitted in two cassettes with each cassette containing one fallopian tube. / SJ:matty 05/03/2022 TC:4 CPT: 09134 x2
[2022-05-03 09:55] LABS: Internal QC Validated? YES +Cl - CLEAR BKGD; Pregnancy, Urine Negative Negative
[2022-05-03] MEDS: Lactated Ringers 1,000 ML 15 ML IV (10:20)
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
[2022-05-03 10:30] LABS: Hematocrit 41.5 % (37-47); Mean Corp Hgb Conc 33.7 g/dL (32-36); Mean Corpuscular Hgb 29.6 pg (27.0-32.0); Mean Corpuscular Volume 87.7 fL (81-99); Mean Platelet Vol. 9.2 fl (6.2-12.0); Platelet Count 257 K/mm3 (150-450); RBC Distribution Width CV 13.2 % (11.6-14.6); RBC Distribution Width SD 42.6 fl (35.1-43.9); Red Blood Count 4.73 M/mm3 (4.2-5.4); White Blood Count 4.6 K/mm3 (4.4-11.0)
[2022-05-03 10:42] LABS: International Normalized Ratio 1.1; Prothrombin Time (Protime)PT. 13.5 SECONDS (11.7-14.9)
[2022-05-03 10:43] LABS: Partial Thromboplast Time 31.4 Seconds (24.1-36.2)
[2022-05-03] MEDS: Bupivacaine Mpf 0.5% 30 ML VIAL (11:17)
--- NOTE | 2022-05-03 11:41 | OP.PCM_ITS ---
Report of Operation Date of Procedure: 05/03/22 Pre-Operative Diagnosis: 1. Sterilization request 2. Multiparity Post-Operative Diagnosis: 1. Sterilization request 2. Multiparity Surgery/Procedure Performed:: 1. Diagnostic laparoscopy 2. Adhesiolysis 3. Bilateral salpingectomy Description of Surgical Findings:: Uterus with thick fibroid adhesion to anterior abdominal pain. Omental adhesion to the uterus and midline anterior abdominal wall. Normal ovaries and uterus otherwise. Surgeon: Consuelo Walters senior occupational therapist: Yolanda Mitchell Type of Anesthesia: General Anesthesiologist: Robbin Villarreal Specimen's removed: bilateral tubes Drains: 300 ml urine Estimated Blood Loss (mL): 15 Fluids Replaced: 1400 ml Description of Procedure: 31-year-old para 3 presents for scheduled laparoscopic bilateral salpingectomy who desires permanent sterilization. She was counseled regarding procedural benefits, risks, indications and reversible alternatives as well as vasectomy. She opted to proceed as planned. Procedure: The patient was brought to the operating room and signed was performed. She is placed in the dorsal supine position and induced under general anesthesia and intubated. She was repositioned into dorsal lithotomy and examination under anesthesia was performed. Her arms were tucked at her sides. The abdomen and perineum were prepped and draped in sterile fashion with straight catheterization of the bladder performed. The patient was placed into high lithotomy and a weighted speculum placed vaginally. The cervix was identified and grasped the anterior cervical lip using a single-tooth tenaculum. The uterus sounded to 9 cm and a ZUMI uterine manipulator was placed and secured. The tenaculum was removed from the cervix and speculum removed from the vagina. The patient was placed into low lithotomy attention turned to the abdomen. Half percent bupivacaine was injected at the inferior umbilicus. An inferior umbilical incision was made with a scalpel and Veress needle was introduced with successful hanging drop test and no aspirate with low abdominal entry pressures. The Veress needle was removed and a 5 mm port was placed under laparoscopic guidance confirming entry into the abdominal cavity. The abdomen and pelvis were inspected. There was a dense midline adhesion of the uterus to the anterior abdominal wall as well as adhesion of the omentum to the anterior abdominal wall and the uterus. The right tube was accessible in the left tube would be accessible following takedown of the omental adhesion. I proceeded with bilateral tap block under laparoscopic guidance injecting half percent bupivacaine in the right and left lower quadrants. Incisions were placed at each of the sites under transillumination and 5 mm ports were placed for total of 3 ports. Tension was applied to the omental adhesion and this lysed using blunt dissection as well as was clamped electrocoagulation and cutting using the Enseal device. As the uterine abdominal wall adhesion was more dense and fibrous and the left adnexa was well accessible no further adhesiolysis was performed. Attention was turned to the left adnexa the tubal fimbria identified. The mesosalpinx was serially clamped, electrocoagulated and cut to the level of the uterine cornua with left salpingectomy performed. In similar fashion the right tube was identified and right salpingectomy was also performed. The tubes were removed via the 5 mm ports. There was good hemostasis and the procedure was complete. The trochars were removed from the abdomen and abdomen desufflated. The skin was reapproximated using 4-0 Monocryl by the DIRECTOR ELECTRICAL ENGINEERING under my supervision. Steri-Strips and OpSite dressing were placed over the incisions. The patient was placed into high lithotomy and the ZUMI was removed vaginally. The cervix was inspected with prior tenaculum site hemostatic. The patient was placed into dorsal supine, arms untucked, awakened and extubated. She will be transferred to the recovery room. Sponge counts were correct x2. Complications None Admit VTE Documentation VTE Present on Admission: No VTE Mechan Device Prophylaxis: SCD's VTE Pharm Prophylaxis ordered?: No
--- NOTE | 2022-05-03 11:51 | DCINST_ITS ---
Discharge Instructions Diet Discharge Diet: No restrictions Activity Discharge Activity: Return to Normal Activity, May Not Drive (for 48-72 hours) and May Shower May resume sexual activity in: - (2-4 weeks) Lifting Restrictions: 10 lb Dressing / Incision Call your doctor if your incision/area has: Continuous Slow Oozing, Sudden Increased Bleeding, Increased Pain/ Swelling, Increased Redness, Foul Smelling Discharge and Swelling at the incision site Call your doctor if you observe: Fever of 101 or Higher, Inability to urinate, Inability to have a bowel movement, Shortness of breath, Chest pain, Calf discomfort and Uncontrolled pain Remove Dressing in: 2 days Cleanse incision/area with: Soap & Water Follow Up Care Please Follow Up With: Consuelo Walters MD When: 1-2 weeks Test Results: Test results from this visit will be discussed in further detail at your follow- up appointment, if applicable. Discharge Plan Admission Primary Reason for Your Visit: Tube removal (salpingectomy) Attending Provider: Consuelo Walters Primary Care Provider: Care PhysicianKaren Primary Discharge Orders/Prescriptions Prescriptions: New oxycodone 5 mg capsule 5 mg PO Q6H PRN (Reason: pain) 5 Days Qty: 20 0RF ibuprofen 600 mg tablet 600 mg PO Q8H PRN (Reason: pain) Qty: 30 0RF Continued vit,[id number] 1 TABLET tablet 1 tab PO DAILY Discontinued ibuprofen 600 MG tablet 600 mg PO Q8H PRN PRN (Reason: Mild Pain (1-01/04)) Qty: 30 0RF norethindrone (contraceptive) 0.35 mg tablet 1 tab PO DAILY Referrals / Follow Up: Care Physician,Karen Primary [Primary Care Provider] - Disposition Disposition (needs filled in before D/C Order can be placed): Home, Self Care
== END 2022-05-03 13:28 | disposition home or self-care (01) ==
LOC: SDC 09:27 → AC 09:29
PROVIDERS: Anesthesiology; Visit Provider Obstetrics & Gynecology
PROC: (CPT 58661; principal; 2022-05-03 10:45)
DX: Z30.2 Encounter for sterilization (principal); Z87.440 Personal history of urinary (tract) infections; M41.9 Scoliosis, unspecified; F17.210 Nicotine dependence, cigarettes, uncomplicated
CPT/HCPCS: 58661; 81025; 85027; 85610; 85730; 86850; 86900; 86901; 88302; J7120; C1760; J2405

== ENCOUNTER 2023-06-09 01:25 | Emergency (ER) | payer MEDICAID, SELFPAY ==
[2023-06-09 01:27] VITALS: BP 118/75; PULSE 65; RESP 106; TEMP 36.7; O2SAT 100; BMI 23.4
[2023-06-09 01:55] VITALS: PULSE 81; RESP 16; O2SAT 98
--- NOTE | 2023-06-09 01:56 | EX.ED.DYSGE1 ---
HPI History of Present Illness Chief Complaint: Dental Narrative Narrative: Patient is a 32-year-old female with past medical history of methamphetamine abuse who presents to the ER with complaint of dental pain. She states that she is since sober from the meth but using it left her with multiple dental issues. She states she been trying to get into a dentist for the past 1 to 2 months but has been unsuccessful. She states she has multiple dental caries and over the last 24 hours has had increasing pain and swelling and throbbing in the left lower jaw which concerns her for infection. She denies difficulty breathing or swallowing she denies any fevers or chills but with the increased pain and swelling presents for evaluation [facility] Medical History Infected dental caries Shortness of breath on exertion Smoker Wears glasses Home Medications clindamycin HCl 300 mg capsule (Cleocin HCl) 300 mg PO 4X/DAY 10 days #40 CAPSULES 06/09/23 [Rx Last Taken Unknown] Allergy/AdvReac Type Severity Reaction Status Date / Time No Known Allergies Allergy Verified 06/09/23 01:26 Surgical History Hx of dilation and curettage Previous section Social History Smoking Status: Light Smoker (<10/day) ROS ROS ED Constitutional Constitutional ED: Denies chills or fever(s) ENT ENT ED: Reports other Details: Positive dental pain ; Denies sore throat Cardiovascular Cardiovascular: Denies chest pain Respiratory/Chest Respiratory/Chest: Denies cough or dyspnea Gastrointestinal Gastrointestinal: Denies abdominal pain, diarrhea, nausea or vomiting Genitourinary Genitourinary ED: Denies dysuria Musculoskeletal Musculoskeletal: Denies myalgias Integumentary Denies rash Neurologic Neurologic: Denies headache(s) Hematologic/Lymphatic Hematologic/Lymphatic: Denies easy bleeding or easy bruising EXAM Physical Exam Const Vital Signs: 06/09/23 01:27 06/09/23 01:55 Temperature 98.0 F Temperature Source Oral Pulse Rate 65 81 Respiratory Rate 106 H 16 Blood Pressure 118/75 Blood Pressure Mean 89 Pulse Ox 100 98 Oxygen Delivery Method Room Air Positive well nourished and well developed General Appearance ED: well developed HEENT Reports moist mucous membranes HEENT Narrative: Patient has dental caries noted throughout the mouth but patient has mild swelling in the left lower jaw around the left molar concerning for infection. There is no obvious dental abscess noted. No airway edema or compromise. No secondary changes to suggest ANUG Eyes PERRL and EOMs intact bilaterally Neck supple Neck Narrative: No brawny edema in the submental space to suggest Umesh's angina Resp normal respiratory effort and clear to auscultation bilaterally Cardio regular rate and regular rhythm Extremity normal to inspection Neuro oriented x3 and CN's II-XII intact bilaterally Sensorium / Orientation: alert Psych mental status grossly normal Skin no rashes or lesions noted MDM MDM MDM Narrative Medical decision making narrative: Patient presented to the ER afebrile without difficulty breathing or swallowing. Differential diagnosis is for dental caries versus dental abscess versus ANUG versus Umesh's angina. Her physical exam does not show signs of Umesh's or ANUG and therefore I do not feel there is need for any type of imaging or laboratory studies. History and exam is consistent with underlying developing dental infection. There is no obvious abscess to drain at this time and therefore patient was placed on antibiotics secondary to concern for infection. Patient was given a dental block as documented below but as she has no signs of systemic infection or airway compromise/respiratory distress she is safe for discharge Patient was given a left inferior alveolar dental block using 1.5 mL of 0.5% Marcaine and 1.5 mL of 2% lidocaine with epinephrine. The patient achieved good anesthesia with the dental block. Patient tolerated procedure well without complication History & Record Review Discussion w/independent historian: Patient Discharge Plan Triage Chief Complaint: Dental ED Provider: Modesto Conklin Dx/Rx/DC Orders Clinical Impression: Infected dental caries, History of methamphetamine use Instructions: Dental Abscess, ED Dental Pain Prescriptions: New clindamycin HCl [Cleocin HCl] 300 mg capsule 300 mg PO 4X/DAY 10 Days Qty: 40 0RF Primary Care Provider: Care Physician,No Primary Referrals: Care Physician,No Primary [Primary Care Provider] - Activity Restrictions/Additional Instructions: Please follow-up with your dentist to discuss further care such as tooth extraction based on your current infection. Return to the ER should you have any further concerns or worsening of symptoms Disposition Disposition: Home, Self Care Discharge Date/Time: 06/09/23 02:07
[2023-06-09] MEDS: Clindamycin HCl 150 MG Capsule 300 MG PO (02:02)
[2023-06-09] MEDS: Lidocaine 2% /Epi 1:100 (20ml) 20 ML VIAL INFILT (02:03)
== END 2023-06-09 02:07 | disposition home or self-care (01) ==
PROVIDERS: Emergency Provider Emergency Medicine; Visit Provider Emergency Medicine
DX: K02.9 Dental caries, unspecified (principal); F15.90 Other stimulant use, unspecified, uncomplicated; F17.200 Nicotine dependence, unspecified, uncomplicated
CPT/HCPCS: 64999; 99283

== ENCOUNTER 2023-11-22 18:57 | Emergency (ER) | payer MEDICAID, SELFPAY ==
[2023-11-22 18:58] VITALS: BP 123/72; PULSE 71; RESP 14; TEMP 37.2; O2SAT 100; BMI 22.8
--- NOTE | 2023-11-22 19:37 | EDS_ITS ---
HPI History of Present Illness Chief Complaint: Chest Pain [facility] Medical History (Updated 11/22/23 @ 21:[address] Charanjit Brumfield DO) Infected dental caries Shortness of breath on exertion Smoker Substance abuse Wears glasses Home Medications clindamycin HCl 300 mg capsule (Cleocin HCl) 300 mg PO 4X/DAY 10 days #40 CAPSULES 06/09/23 [Rx Last Taken Unknown] Allergy/AdvReac Type Severity Reaction Status Date / Time No Known Allergies Allergy Verified 11/22/23 18:57 Surgical History Hx of dilation and curettage Previous section Social History Smoking Status: Light Smoker (<10/day) EXAM Physical Exam Const Vital Signs: 11/22/23 18:58 11/22/23 20:56 11/22/23 20:57 Temperature 98.9 F Temperature Source Temporal Pulse Rate 71 Respiratory Rate 14 Respiratory Effort Normal Non-Labored Blood Pressure 123/72 H Blood Pressure Mean 89 Pulse Ox 100 Oxygen Delivery Method Room Air Room Air 11/22/23 20:59 11/22/23 22:51 11/22/23 23:17 Temperature Temperature Source Pulse Rate 75 71 62 Respiratory Rate 22 H 20 H 15 Respiratory Effort Blood Pressure 116/74 100/65 115/84 H Blood Pressure Mean 88 76 94 Pulse Ox 98 98 100 Oxygen Delivery Method Room Air MDM MDM MDM Narrative Medical decision making narrative: HISTORY OF PRESENT ILLNESS: 33-year-old female presents with chest pain. States approximately 5 hours ago she developed chest pain over the middle of her chest. Denies cough or fever. Denies vomiting. Denies any bleeding diathesis. Denies any drug use. Notes the pain is not exertional. It is not worse with deep breath. Is not associated leg swelling. Denies any family history of early cardiac with age of 50. Patient denies sudden onset of pain, no tearing sensation, no migratory symptoms, no new numbness, weakness or loss of sensation. Patient denies family history or personal history of Marfan syndrome or Yokasta-Danlos. The patient denies recent surgery in the last 4 weeks or immobilization in the last 3 days, denies previous diagnosis of DVT or PE, hemoptysis, unilateral leg swelling or malignancy with treatment the last 6 months. No estrogen use noted. REVIEW OF SYSTEMS: All other systems reviewed and are negative except as noted in the history of present illness. At least 10 review of systems reviewed and are negative except as noted in history of present illness. PHYSICAL EXAM: Nursing triage notes reviewed, Vital signs reviewed Constitutional: please see [facility] HENT: MMM Eyes: Pupils equal round and reactive to light, Extraocular muscles intact Neck: No stridor, no JVD, full neck ROM Lungs: Clear to auscultation, No wheezing or rales. No increased work of breathing, no conversational dyspnea, no accessory muscle use, no nasal flaring. No respiratory distress noted Heart: Regular rate and rhythm, No murmurs, No rubs and No gallops, 2+ distal pulses (radial, femoral, posterior tibial) in all extremities Abdomen: Soft, there is no tenderness, rigidity, rebound or guarding, no obvious peritoneal signs, no palpable pulsatile abdominal masses, no auscultated abdomi nal bruit : No CVAT Extremities: No edema Neuro: No focal neurological deficits, cranial nerves II through XII intact, 5/5 strength in all extremities. Intact sensation to light touch in all extremities, 2+ reflexes bilateral patella tendons. Normal gait. No ataxia. Skin: No rash or lesions noted MEDICAL DECISION MAKING: Chief Complaint: Chest pain External records reviewed: [Last ED visit in May 2023 for methamphetamine abuse Factors affecting care: History of methamphetamine abuse Social determinants of health: Methamphetamine abuse History obtained from others: None Consults: none ALL IMAGES (IF OBTAINED) HAVE BEEN PERSONALLY REVIEWED AND INTERPRETED BY MYSELF. [facility] Narrative: [Patient was hemodynamically stable, afebrile, nontoxic-appearing. Cardiopulmonary exam was nonfocal. She has symmetric pulses. She has no stigmata of VTE. She had no lower extremity edema. I considered the following differential diagnosis: ACS, arrhythmia, anemia, electrolyte abnormality, pneumonia, pneumothorax, GI etiology, PE Initial EKG showed normal sinus rhythm, normal axis, normal intervals, no STEMI High-sensitivity troponin is negative, no evidence of myocardial ischemia x2 BMP without evidence of significant electrolyte abnormalities, (noted mild hypokalemia) no anion gap, no acute kidney injury. CBC without leukocytosis, severe anemia, no thrombocytopenia. I have personally reviewed the patient's chest x-ray. Chest x-ray is unremarkable for pulmonary edema, pneumothorax, pneumonia or focal cardiopulmonary abnormality. The synthesis of the patient's history, physical exam, labs images suggest no acute life-limiting etiology. Low risk heart score. Pt is appropriate for dc home. PE less likely given low risk Wells score. Aortic dissection is thought to be less likely given no sudden ripping or tearing pain, migratory pain, palpable pulse inequalities, no focal neurologic deficits concurrent with chest pain. Chance of dissection less than 10/1999. Pericarditis less likely given no pathognomonic EKG changes (no diffuse ST elevations, HI depressions). GI etiology (i.e. Boerhaave syndrome) less likely given no chest or neck crepitus, no vomiting or forced retching. I completed a HEART Score to screen for Major Adverse Cardiac Event (MACE) in this patient. The evidence indicates that the patient is very low risk for MACE and this is consistent with my clinical intuition. The risk of further workup or hospitalization for MACE is likely higher than the risk of the patient having a MACE. It is, therefore, in the patient?s best interest not to do additional emergent testing or to be hospitalized for MACE at this time. Shared Decision-Making No hospitalization indicated I have discussed with the patient my clinical impression and the result of the HEART Score to screen for MACE, as well as the risks of further testing and hospitalization. The HEART Score shows that the risk for MACE is less than 1%. Although the risk of MACE has not been completely eliminated, the risks of further testing or hospitalization for MACE likely exceed any potential benefit, and the patient agrees with not pursuing further emergent evaluation or hospitalization for MACE at this time. The patient and/or family, caregivers express understanding. The patient and/or family, caregivers agrees with the plan. Total critical care time today provided was at least 0 minutes. This excludes separately billable procedures. Critical care time (if documented) is secondary to the patient having high probability of clinically significant/life threatening deterioration in the patient's condition which required my urgent intervention. Impression: 1. Chest pain 2. Hypokalemia Disposition: Discharge home Charanjit Brumfield, DO Lab Data Labs: Laboratory Results - last 24 hr 11/22/23 11/22/23 20:15 22:40 WBC 6.2 RBC 4.31 Hgb 12.9 Hct 38.5 MCV 89.3 MCH 29.9 MCHC 33.5 RDW Std Deviation 43.2 RDW Coeff of Mario Alberto 13.1 Plt Count 248 MPV 9.3 Immature Gran % (Auto) 0.200 Neut % (Auto) 44.1 L Lymph % (Auto) 46.0 H [place] % (Auto) 8.4 Eos % (Auto) 1.0 Baso % (Auto) 0.3 Absolute Neuts (auto) 2.7 Absolute Lymphs (auto) 2.84 Nucleated RBC % 0 Sodium 139 Potassium 3.2 L Chloride 111 H Carbon Dioxide 23.0 Anion Gap 5 BUN 19 H Creatinine 0.72 Estim Creat Clear Calc 100.94 Est GFR (MDRD) Af Amer 120 Est GFR (MDRD) Non-Af 99 BUN/Creatinine Ratio 26.3 H Glucose 86 Calcium 9.1 Troponin I High Sens < 3 L 4 Radiography Diagnostic Testing: Clinical Impression(s) from Imaging Studies Chest X-Ray 11/22/23 20:25 IMPRESSION: Normal x-ray examination of the chest. Electronically Signed: Naman Rodriguez MD at 21:39 EST Reading Location ID and State: [facility] / [place] , Service support , Discharge Plan Triage Chief Complaint: Chest Pain ED Provider: Charanjit Brumfield Dx/Rx/DC Orders Clinical Impression: Chest pain Instructions: Chest Pain [facility] Prescriptions: No Action clindamycin HCl [Cleocin HCl] 300 mg capsule 300 mg PO 4X/DAY 10 Days Qty: 40 0RF Primary Care Provider: Care Physician,No Primary Referrals: Uriel Monterroso MD [Med Staff - Independent Jeweler] - Activity Restrictions/Additional Instructions: Thank you for trusting us with your care today! Please take Tylenol (2 pills, 650 mg), ibuprofen (2 pills, 400 mg) every 6 hours as needed for pain and fever control. Please return to the emergency department if your symptoms change or worsen. Please follow with your primary care physician for further outpatient evaluation and management. Disposition Disposition: Home, Self Care
--- OUTSIDE RECORDS SUMMARY | 2023-11-22 19:55 | XMS RPT_ITS | CCD ---
Author Name Unknown Address [address] [place] [address] Organization [facility] Care Team Providers Care Mobile Application Engineer Name Role Phone SHANA CONTRERAS Admitting Unavailable SHANA CONTRERAS Attending Unavailable GIANFRANCO JON MD Referring Unavailable SHANA CONTRERAS Primary Care Unavailable GIANFRANCO JON MD Consulting Unavailable PROVIDER, UNKNOWN Consulting Unavailable PROVIDER, UNKNOWN Consulting Unavailable PROVIDER, UNKNOWN Consulting Unavailable Results Test Name Value Interpretation Reference Range Facil ity Encounters Encounter Date Encounter Type Care Provider Facility Start: 05-24-2022 End: 05-24-2022 Emergency department patient visit SHANA CONTRERAS [facility] Payers Date Payer Category Payer Unknown [id number] Private Health Insurance [id number] Summary Purpose Family History No Family History Records Found Advance Directives No Advanced Directives Records Found Additional Source Comments INFORMATION SOURCE (unrecogn ized section and content) FOR RECORDS PERTAINING TO PATIENTS WHO ARE OR HAVE BEEN ENROLLED IN A CHEMICAL DEPENDENCY/SUBSTANCEABUSE PROGRAM, SOME INFORMATION MAY BE OMITTED. This clinical summary was aggregated from multiple sources. Caution should be exercised in using it in the provision of clinical care. This summary normalizes information from multiple sources, and as a consequence, information in this document may materially change the coding, format and clinical context of patient data. In addition, data may be omitted in some cases. CLINICAL DECISIONS SHOULD BE BASED ON THE PRIMARY CLINICAL RECORDS. [email or web address] provides no warranty or guarantee of the accuracy or completeness of information in this document.
[2023-11-22 20:22] LABS: Absolute Lymphocyte Count 2.84 X10^3/uL (0.83-4.51); Absolute Neutrophil Count 2.7 X10^3/uL (2.0-7.7); Basophil# 0.02 X10^3/uL; Basophil% 0.3 % (0-1); Eosinophil# 0.06 X10^3/uL; Hematocrit 38.5 % (37-47); Hemoglobin 12.9 g/dL (12.0-15.0); Lymphocyte # 2.84 X10^3/ul (0.83-4.51); Mean Corp Hgb Conc 33.5 g/dL (32-36); Mean Corpuscular Hgb 29.9 pg (27.0-32.0); Mean Corpuscular Volume 89.3 fL (81-99); Mean Platelet Vol. 9.3 fl (6.2-12.0); Monocyte# 0.52 X10^3/uL; Monocyte% 8.4 % (0-10); NRBC Flagged by Analyzer 0 % (0-5); Neutrophil # 2.73 X10^3/uL (2.7-7.7); Neutrophil % 44.1 % (47-70); Platelet Count 248 K/mm3 (150-450); RBC Distribution Width CV 13.1 % (11.6-14.6); RBC Distribution Width SD 43.2 fl (35.1-43.9); Red Blood Count 4.31 M/mm3 (4.2-5.4); White Blood Count 6.2 K/mm3 (4.4-11.0)
--- NOTE | 2023-11-22 20:25 | RAD_ITS ---
STUDY: X-RAY CHEST REASON FOR EXAM: Female, 33 years old. chest pain TECHNIQUE: Single AP portable view of the chest. COMPARISON: 2020 FINDINGS: EKG leads overlie the chest The lungs are clear and expanded. There is no demonstrated pleural abnormality. Normal size heart. Normal mediastinum and trina. Normal visualized pulmonary arteries. Normal visualized aortic arch and descending thoracic aorta. Normal visualized thoracic spine. Normal visualized ribs, clavicles, and shoulders. There is no demonstrated abnormality of the visualized soft tissue structures of the upper abdomen. RAD/Chest 1 View (Portable) IMPRESSION: Normal x-ray examination of the chest. Electronically Signed: Naman Rodriguze MD at 21:39 EST ,
[2023-11-22 20:41] LABS: Anion Gap 5 (5-15); BUN 19 mg/dL (7-18); BUN/Creat Ratio 26.3 RATIO (10-20); Calcium,Total 9.1 mg/dL (8.5-10.1); Chloride 111 mmol/L (98-107); Creatinine, Serum 0.72 mg/dL (0.55-1.02); EST Glomerular Filtration Rate 99 mL/min (>60); Est Glom Filt Rate - Afr Amer 120 mL/min (>60); Estimated Creatinine Clearance 100.94 ml/min; Glucose 86 mg/dL (74-106); Potassium 3.2 mmol/L (3.5-5.1); Sodium Level 139 mmol/L (136-145); Troponin-I HS (w/2H Reflex) < 3 pg/mL (3.0-54.0)
[2023-11-22 20:59] VITALS: BP 116/74; PULSE 75; RESP 22; O2SAT 98
[2023-11-22 22:20] LABS: Reflex Troponin-HS? (from REC) Y
[2023-11-22 22:51] VITALS: BP 100/65; PULSE 71; RESP 20; O2SAT 98
[2023-11-22 23:16] LABS: Troponin-I HS 4 pg/mL (3.0-54.0)
[2023-11-22 23:17] VITALS: BP 115/84; PULSE 62; RESP 15; O2SAT 100
== END 2023-11-22 23:47 | disposition home or self-care (01) ==
PROVIDERS: Emergency Provider Emergency Medicine; Visit Provider Emergency Medicine
DX: R07.9 Chest pain, unspecified (principal); E87.6 Hypokalemia; F17.200 Nicotine dependence, unspecified, uncomplicated
CPT/HCPCS: 71045; 80048; 84484; 85025; 93005; 99284